=== PATIENT | female | born 1990 | race Caucasian/White ===

== ENCOUNTER 2023-06-29 20:39 | Emergency (ER) | payer BC, SELFPAY ==
[2023-06-29 20:45] VITALS: BP 137/57; PULSE 96; RESP 16; TEMP 36.7; O2SAT 99; BMI 39.9
--- NOTE | 2023-06-29 20:52 | XRR_ITS ---
PROCEDURE INFORMATION: Exam: XR Right Hand Exam date and time: 06/29/2023 9:02 PM Age: 33 years old Clinical indication: Injury or trauma; Fall; Blunt trauma (contusions or hematomas); Hand; Right TECHNIQUE: Imaging protocol: Radiologic exam of the right hand. Views: 3 or more views. COMPARISON: No relevant prior studies available. FINDINGS: Bones/joints: Normal. Soft tissues: Normal. XR/XR hand RT min 3V* [id number] IMPRESSION: No acute findings.
--- NOTE | 2023-06-29 20:52 | ED_ITS ---
HPI - Fall General: Chief Complaint: Fall Stated Complaint: hurt hand Time Seen by Provider: 06/29/23 20:40 Source: patient Mode of arrival: ambulatory Limitations: no limitations History of Present Illness: 33-year-old female states that she is moving furniture tripped and fell landed on her right hand states this happened a few hours ago she been having pain in her mid hand since then she rates the pain a 5 out of 10 denies any other injuries denies hitting her head. Associated symptoms-after fall: Denies abdominal pain, chest pain, headache(s) or neck pain Review of Systems Const: Denies: fever(s) or chills ENMT: Denies: throat pain or dental pain Card: Denies: chest pain Resp: Denies: dyspnea GI: Denies: abdominal pain, nausea, vomiting or diarrhea Musc: Reports: extremity pain; Denies: neck pain or back pain Skin/Breast: Denies: rash Neuro: Denies: headache(s) Physical Exam Const: COMMON NORMALS: no acute distress, patient oriented x3 and healthy appearing HENMT: COMMON NORMALS: normocephalic and atraumatic HEAD & SCALP: normocephalic and atraumatic Eye: COMMON NORMALS: conjunctivae normal CONJUNCTIVA: Yes conjunctivae normal Neck/C-Spine: COMMON NORMALS: full ROM and supple Chest: COMMONS NORMALS: normal inspection of the chest Resp: COMMON NORMALS: normal respiratory effort Cardio: COMMON NORMALS: No murmurs present (Cardio) Extremity: NARRATIVE EXTREMITY EXAM: Slight tenderness over dorsum of mid hand no obvious deformities no tenderness over digits or wrist Neuro: COMMON NORMALS: patient oriented x3, moves all extremities and no focal motor deficits Psych: COMMON NORMALS: mental status grossly normal, Normal thought process present and cooperative THOUGHT PROCESS: Normal thought process present Skin: COMMON NORMALS: no rashes or lesions noted and no wounds GENERAL SKIN EXAM: no rashes or lesions noted Course Vital Signs: Vital signs: Vital Signs Temperature 98.0 F 06/29/23 21:19 Pulse Rate 96 06/29/23 21:19 Respiratory Rate 16 06/29/23 21:19 Blood Pressure 137/57 06/29/23 21:19 Pulse Oximetry 99 06/29/23 21:19 Oxygen Delivery Me thod Room Air 06/29/23 20:45 MDM - Fall Medical Decision Making Patient presents with a right hand contusion x-ray shows no fractures patient is stable for discharge she is to follow-up with PCP and return if worsening. Lab Data Radiology Impressions Hand X-Ray 06/29/23 20:52 IMPRESSION: No acute findings. All radiology interpretation(s) finalized by discharge Discharge Plan Discharge Patient Disposition: Home Clinical Impression: Contusion of hand, right Condition: Stable Discharge Orders: Discharge ED (Routine); Ordered 06/29/23 Ordered By: Sunitha Sánchez Referrals: RIZWANA CRABTREE MD [Primary Care Provider] - 1-3 days Discharge Diet: Advance as tolerated Discharge Activity: Resume usual activity Patient Instructions: Contusion in Adults (ED) Stand Alone Forms: Work/School Release Coding Level of Care Code ED [employer] Operator for Danilo Renteria
[2023-06-29] MEDS: HYDROcodone-acetaminophen 5-325 mg Tablet 1 TAB PO (20:54)
[2023-06-29 21:19] VITALS: BP 137/57; PULSE 96; RESP 16; TEMP 36.7; O2SAT 99
== END 2023-06-29 21:19 | disposition home or self-care (01) ==
PROVIDERS: Emergency Provider Emergency Medicine; PCP Internal Medicine
DX: S60.221A Contusion of right hand, initial encounter (principal); W01.0XXA Fall on same level from slipping, tripping and stumbling without subsequent striking against object, initial encounter
CPT/HCPCS: 73130; 99283